=== PATIENT | female | born 1970 | race Caucasian/White ===

== ENCOUNTER 2021-11-14 06:23 | Inpatient (IN) ==
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
[2021-11-14 07:29] LABS: Basophils # (auto) 0.09 K/uL (0-0.2); Basophils % (auto) 0.7 %; Eosinophils # (auto) 0.09 K/uL (0-0.50); Eosinophils % (auto) 0.7 %; Hematocrit (blood only) 41.8 % (34.1-44.9); Immature Granulocytes # (auto) 0.06 K/uL (0.00-0.02); Immature Granulocytes % (auto) 0.5 %; Lymphocytes # (auto) 2.35 K/uL (1.2-3.4); Lymphocytes % (auto) 19.5 %; Mean Corpuscular Hemoglobin 28.7 pg (25.0-34.0); Mean Corpuscular Hgb Conc 33.5 g/dL (32.0-36.0); Mean Corpuscular Volume 85.7 fL (80.0-100.0); Mean Platelet Volume 9.6 fL (9.4-12.3); Monocytes # (auto) 0.56 K/uL (0.24-0.82); Monocytes % (auto) 4.7 %; Neutrophils # (auto) 8.89 K/uL (1.4-6.5); Neutrophils % (auto) 73.9 %; Platelet Count 292 K/uL (130-400); RDW Coefficient of Variation 13.3 % (11.5-14.5); RDW Standard Deviation 41.6 fL (36.4-46.3); Red Blood Count 4.88 M/uL (3.93-5.22); White Blood Count 12.04 K/ul (4.8-10.8)
[2021-11-14] MEDS ORDERED: SODIUM CHLORIDE 0.9% 1000ML 1,000 ML IV SCH ×2 (07:30→11:15)
--- NOTE | 2021-11-14 07:44 | XRay Report ---
XR chest 1V portable HISTORY: 51 years-old Female od acute drug overdose COMPARISON: None TECHNIQUE: Portable AP view of the chest FINDINGS: Cardiac silhouette is mildly enlarged. There is no pneumothorax, pleural effusion, airspace consolida tion or overt pulmonary edema. Bones of the chest appear grossly intact. IMPRESSION: No acute process. ACT 112: Negative or not required by law. The above report was generated using voice recognition software. It may contain grammatical, syntax o r spelling errors. Electronically signed by: Jovanni Vera M.D. 11/14/2021 7:43 AM
[2021-11-14 07:45] LABS: Pregnancy Test, Serum Negative (Negative)
[2021-11-14 07:46] LABS: Acetaminophen < 3 ug/ml (10-30); Salicylate < 3.0 mg/dl (3.0-30)
[2021-11-14 07:47] LABS: Albumin Globulin Ratio 1.5 (0.9-2); Albumin Level 4.4 gm/dl (3.4-5.0); BUN Creatinine Ratio 16.8 (10-20); Bilirubin,Total 0.8 mg/dl (0.2-1.0); Calcium 9.6 mg/dl (8.5-10.1); Creatinine Clr Calc Pharmacy 58.1 ml/min; Est GFR (Non-African American) 44.9 ml/min; Globulin 2.9 gm/dl (2.5-4.0); Potassium 4.5 mmol/L (3.5-5.1); Total Protein 7.3 gm/dl (6.0-8.3)
[2021-11-14 09:22] LABS: Appearance Urine Cloudy (Clear); Bacteria Urine Automated 1+ (Negative); Bilirubin Urine Negative (Negative); Blood Urine Negative (Negative); Color Urine Yellow; Epithelial Cell Urine Auto >30 /lpf (0-5); Glucose Urine UA Negative (Negative); Ketones Urine Trace (Negative); Leukocyte Esterase Urine Negative (Negative); Nitrite Urine Negative (Negative); Protein Urine Negative (Negative); RBC Urine Automated 0-4 /hpf (0-4); Specific Gravity Urine 1.015 (1.000-1.030); Urobilinogen Urine Negative (Negative)
[2021-11-14 09:23] LABS: Cast Urine Automated >30 /lpf (0-5)
[2021-11-14 10:09] LABS: Amphetamines+Metham, Urine Neg (Neg); Barbiturates, Urine Neg (Neg); Benzodiazepine, Urine Pos (Neg); Cocaine, Urine Neg (Neg); MDMA (Ecstacy), Urine Pos (Neg); Methadone, Urine Neg (Neg); Opiate, Urine Neg (Neg); Phencyclidine, Urine Neg (Neg)
--- NOTE | 2021-11-14 10:36 | Electrocardiogram Report ---
Test Reason : Blood Pressure : / mmHG Vent. Rate : 056 BPM Atrial Rate : 056 BPM P-R Int : 176 ms QRS Dur : 082 ms QT Int : 476 ms P-R-T Axes : 052 007 013 degrees QTc Int : 459 ms Sinus bradycardia Otherwise normal ECG No previous ECGs available Confirmed by Mesfin Moran ([id number]) on 11/14/2021 10:35:55 AM Referred By: REFERRED SELF Confirmed By:Mesfin Moran
--- NOTE | 2021-11-14 11:19 | History & Physical Report ---
Date of Service November 14, 2021 Assessment & Plan (1) Suicide attempt by multiple drug overdose: (2) MDD (major depressive disorder), recurrent episode, severe: (3) Anxiety: Plan: - Admit to tele - Will consult psych - Discussed therapy and counseling, pt reports that she has never utilized services like this in the past, agreeable to outpatient counseling/therapy after this hospital stay - 1:1 observation for now - Holding amlodipine and propranolol as she overdosed on these medications at 9 pm on 11/13 - Will keep pacemaker and atropine available at bedside in case of severe bradycardia or hypotension, BP currently stable and improving - Will continue NSS at 150 mg/hr x 2 bags - Seizure precautions - Follow BSG ACHS or Q6H if not tolerating po intake, currently pt is requesting juice and tolerating it well. (4) HTN (hypertension): Plan: - Holding propranolol and amlodipine secondary to above (5) IBS (irritable bowel syndrome): Plan: - Chronic, no current complaints (6) Hypothyroidism: Plan: - Cont levothyroxine, chest tsh and free T4 DVT ppx: Teds, scds, ambulatory CODE: FULL Dispo: From home, remain in the hospital x 1-2 days History of Present Illness Chief Complaint: Overdose Primary Care Provider: NO PCP This is a 51 yo F with PMHx of HTN, IBS, hypothyroidism, major depressive disorder and anxiety who presents to the ER after overdose on propranolol and amlodipine. Patient reports that she has been under many stressors recently, she is a traveling [employer] and recently completed a job assignment in [place]. She is currently employed here in town and reports that she hates her job. She was away from her 3 children, ages 14, 17 and 18. Patient is newly engaged to her fianc, which she has been dating for approximately 1 year. Last night they got into an argument over alcohol use, as she personally does not drink more than an occasional glass of wine, however reports that her fianc will drink more than 2 drinks in a sitting and that this upsets her due to something that occurred in her childhood which she does not want to discuss with me currently. Her one dog recently had to be put to sleep. She also moved to here to [place] from [place] earlier this year and states that it has been stressful to be away from her family and her friends. She previously was running for exercise when she was in [place], but also reports she hasn't had time to do this since coming back. Due to all the social stressors and the argument last night she decided she was tired of this and wanted to kill herself by overdosing on propranolol extended release 80 mg x 21-22 tablets, and amlodipine 2.5 mg x 20 tablets at 9pm last evening. She did not sleep all night due to interruptions with her dogs keeping her awake with barking. Denies any other acute symptoms last evening other than feeling a bit weak this morning when she got up. At this point, she has ambulated to the bathroom without difficulty in the ER. She denies any homicidal ideations. She reports she has never felt this way before and has never previously experienced suicidal ideations. Never has previously seen a psychiatrist, counselor or therapist. Pertinent social history: Patient has been on Prozac 60 mg daily x5 years since when her mother . Currently lives with her abe and her 3 children. Employed as a SITE FOREMAN, traveling assignments. Never incarcerated Family history: Mother: of nonalcoholic cirrhosis and sepsis at age 72 Father: DM type II, at age 55 due to an [facility] Brother: Hypertension Sister: Abdominal issues, vomiting, thrush Allergies Allergy/AdvReac Type Severity Reaction Status Date / Time No Known Allergies Allergy Unverified 11/14/21 17:30 Home Medications Medication Instructions Recorded Confirmed Type amlodipine 2.5 mg PO DAILY 11/14/21 11/14/21 History fluoxetine 20 mg capsule (Prozac) 60 mg PO DAILY 11/14/21 11/14/21 History levothyroxine 50 mcg PO DAILY 11/14/21 11/14/21 History propranolol 80 mg capsule,24 80 mg PO DAILY 11/14/21 11/14/21 History hr,extended release Past Med/Surg History Medical History (Updated 11/14/21 @ 12:20 by Haylee Martines PA-C) Anxiety HTN (hypertension) Hypothyroidism IBS (irritable bowel syndrome) MDD (major depressive disorder), recurrent episode, severe Family History (Updated 11/14/21 @ 12:13 by Haylee Martines PA-C) Father Heart disease Diabetes Brother Hypertension Mother Diabetes Non-alcoholic cirrhosis Social History (Updated 11/14/21 @ 12:13 by RHODA Lora Smoking Status: Never smoker Tobacco Type: Smokeless Tobacco (Dip or Chew) Hx Alcohol Use: No Hx Substance Use: No Preferred Language: Ecuadorean Communication Ability: Effective Maintenance Operator Required: No Beliefs That Will Affect Care: None Current Living Situation: Significant Other Current Living Situation Comment: boyfriend current occupational status: employed Other Information That Helps Us Care for You: No Feels Safe at Home: Yes Safety Concerns: Feels Safe At This Time Assistive Devices: Glasses Review of Systems Review of Systems: Constitutional: No fever, sweats or chills Eyes: No diplopia, no worsening or blurred vision ENT: normal hearing, no trouble swallowing Respiratory: No cough, sputum, dyspnea at rest or on exertion Cardiovascular: No chest pain, tightness or palpitations Abdomen: No pain, nausea, vomiting, diarrhea or constipation Musculoskeletal: No joint pain, calf pain, swelling Neurologic: No weakness, numbness/tingling, or balance problems Psychiatric: + anxiety and depression, as per HPI. Skin: No rash or itch Physical Exam Physical Exam: General: awake, alert, no apparent distress, + shakey Head: Normocephalic, atraumatic ENT: PERRL, EOMI, no pharyngeal exudate, mucous membranes moist Chest: Clear to auscultation, on room air, no adventitious breath sounds Cardiac: Regular rate and rhythm, Hr in mid 50s at beside, BP 90s/70s, no murmur, no JVD, normal peripheral pulses, good capillary refill Abdominal: NABS x 4 quadrants, soft, nondistended, nontender to palpation, no rebound or guarding Extremities: Normal inspection, no peripheral edema or erythema, calfs nontender to palpation Psych: depressed mood and slightly tearful affect at times, denies suicidal and homicidal ideations currently Neuro: AAO x 3, strength intact bilaterally and rated 5/5, no motor deficits, speech is clear, no peripheral sensory deficits Results & Data Results & Data ([facility]) Vital Signs (Past 12 Hours) Vital Signs Temp Pulse Pulse Resp BP BP Pulse Ox 11/14/21 09:45 56 L 16 92 11/14/21 09:45 86/49 L 11/14/21 09:30 59 L 17 91 11/14/21 09:30 94/58 L 11/14/21 09:15 55 L 14 94 11/14/21 09:15 88/56 L 11/14/21 09:00 57 L 18 93 11/14/21 09:00 89/56 L 11/14/21 08:45 54 L 17 93 11/14/21 08:45 91/59 L 11/14/21 08:30 55 L 15 93 11/14/21 08:30 88/57 L 11/14/21 08:15 54 L 23 95 11/14/21 08:15 90/56 L 11/14/21 08:00 54 L 16 94 11/14/21 08:00 82/55 L 11/14/21 07:45 55 L 17 95 11/14/21 07:45 86/50 L 11/14/21 07:31 95/53 L 11/14/21 07:31 56 L 18 94 11/14/21 07:00 54 L 11 L 95 11/14/21 07:00 90/52 L 11/14/21 06:54 90/55 L 11/14/21 06:54 56 L 17 91 11/14/21 06:43 55 L 18 11/14/21 06:43 90/49 L 11/14/21 06:55 53 L 16 90/55 L 94 11/14/21 06:53 89 L 11/14/21 06:29 36.5 C 55 L 18 76/55 L 93 O2 Del Method O2 Flow Rate 11/14/21 09:45 11/14/21 09:45 11/14/21 09:30 11/14/21 09:30 11/14/21 09:15 11/14/21 09:15 11/14/21 09:00 11/14/21 09:00 11/14/21 08:45 11/14/21 08:45 11/14/21 08:30 11/14/21 08:30 11/14/21 08:15 11/14/21 08:15 11/14/21 08:00 11/14/21 08:00 11/14/21 07:45 11/14/21 07:45 11/14/21 07:31 11/14/21 07:31 11/14/21 07:00 11/14/21 07:00 11/14/21 06:54 11/14/21 06:54 11/14/21 06:43 11/14/21 06:43 11/14/21 06:55 Nasal Cannula 2 11/14/21 06:53 Room Air, Nasal Cannula 0 11/14/21 06:29 Room Air Laboratory Results 11/14/21 09:04 Urine Culture - Pending Urine,Clean Catch 11/14/21 11/14/21 11/14/21 10:05 09:04 09:04 WBC RBC Hgb Hct MCV MCH MCHC RDW Std Deviation RDW Coeff of Zeynep Plt Count MPV Immature Gran % (Auto) Neut % (Auto) Lymph % (Auto) [place] % (Auto) Eos % (Auto) Baso % (Auto) Neut # (Auto) Lymph # (Auto) [place] # (Auto) Eos # (Auto) Baso # (Auto) Immature Gran # (Auto) Sodium Potassium Chloride Carbon Dioxide Anion Gap BUN Creatinine Est Cr Clr Drug Dosing Est GFR ( Amer) Est GFR (Non-Af Amer) BUN/Creatinine Ratio Glucose POC Glucose 100 H Lactate Calcium Total Bilirubin AST ALT Alkaline Phosphatase Total Protein Albumin Globulin Albumin/Globulin Ratio HCG, Qual Urine Color Yellow Urine Appearance Cloudy A Urine pH 5.0 Ur Specific [place] 1.015 Urine Protein Negative Urine Glucose (UA) Negative Urine Ketones Trace H Urine Blood Negative Urine Nitrite Negative Urine Bilirubin Negative Urine Urobilinogen Negative Ur Leukocyte Esterase Negative Urine WBC (Auto) 5-10 H Urine RBC (Auto) 0-4 U Hyaline Cast (Auto) >30 H U Epithel Cells (Auto) >30 H Urine Bacteria (Auto) 1+ H Ur Renal Epithelial Cell 5-10 H Salicylates Urine Opiates Screen Neg Ur Methadone, Qual Neg Acetaminophen Urine Barbiturates Neg Ur Phencyclidine (PCP) Neg U Amphetamin/Meth Scrn Neg MDMA (Ecstasy) Screen Pos H U Benzodiazepines Scrn Pos H Ur Cocaine Metabolite Neg U Marijuana (THC) Screen Neg Ethyl Alcohol mg/dL 11/14/21 11/14/21 11/14/21 07:55 06:49 06:49 WBC RBC Hgb Hct MCV MCH MCHC RDW Std Deviation RDW Coeff of Zeynep Plt Count MPV Immature Gran % (Auto) Neut % (Auto) Lymph % (Auto) [place] % (Auto) Eos % (Auto) Baso % (Auto) Neut # (Auto) Lymph # (Auto) [place] # (Auto) Eos # (Auto) Baso # (Auto) Immature Gran # (Auto) Sodium Potassium Chloride Carbon Dioxide Anion Gap BUN Creatinine Est Cr Clr Drug Dosing Est GFR ( Amer) Est GFR (Non-Af Amer) BUN/Creatinine Ratio Glucose POC Glucose Lactate 1.8 Calcium Total Bilirubin AST ALT Alkaline Phosphatase Total Protein Albumin Globulin Albumin/Globulin Ratio HCG, Qual Negative Urine Color Urine Appearance Urine pH Ur Specific [place] Urine Protein Urine Glucose (UA) Urine Ketones Urine Blood Urine Nitrite Urine Bilirubin Urine Urobilinogen Ur Leukocyte Esterase Urine WBC (Auto) Urine RBC (Auto) U Hyaline Cast (Auto) U Epithel Cells (Auto) Urine Bacteria (Auto) Ur Renal Epithelial Cell Salicylates Urine Opiates Screen Ur Methadone, Qual Acetaminophen Urine Barbiturates Ur Phencyclidine (PCP) U Amphetamin/Meth Scrn MDMA (Ecstasy) Screen U Benzodiazepines Scrn Ur Cocaine Metabolite U Marijuana (THC) Screen Ethyl Alcohol mg/dL < 10.0 11/14/21 11/14/21 11/14/21 06:49 06:49 06:49 WBC 12.04 H RBC 4.88 Hgb 14.0 Hct 41.8 MCV 85.7 MCH 28.7 MCHC 33.5 RDW Std Deviation 41.6 RDW Coeff of Zeynep 13.3 Plt Count 292 MPV 9.6 Immature Gran % (Auto) 0.5 Neut % (Auto) 73.9 Lymph % (Auto) 19.5 [place] % (Auto) 4.7 Eos % (Auto) 0.7 Baso % (Auto) 0.7 Neut # (Auto) 8.89 H Lymph # (Auto) 2.35 [place] # (Auto) 0.56 Eos # (Auto) 0.09 Baso # (Auto) 0.09 Immature Gran # (Auto) 0.06 H Sodium 135 L Potassium 4.5 Chloride 101 Carbon Dioxide 23 Anion Gap 11 BUN 23 Creatinine 1.37 H Est Cr Clr Drug Dosing 58.1 Est GFR ( Amer) 52.0 Est GFR (Non-Af Amer) 44.9 BUN/Creatinine Ratio 16.8 Glucose 137 H POC Glucose Lactate Calcium 9.6 Total Bilirubin 0.8 AST 19 ALT 23 Alkaline Phosphatase 48 Total Protein 7.3 Albumin 4.4 Globulin 2.9 Albumin/Globulin Ratio 1.5 HCG, Qual Urine Color Urine Appearance Urine pH Ur Specific [place] Urine Protein Urine Glucose (UA) Urine Ketones Urine Blood Urine Nitrite Urine Bilirubin Urine Urobilinogen Ur Leukocyte Esterase Urine WBC (Auto) Urine RBC (Auto) U Hyaline Cast (Auto) U Epithel Cells (Auto) Urine Bacteria (Auto) Ur Renal Epithelial Cell Salicylates < 3.0 L Urine Opiates Screen Ur Methadone, Qual Acetaminophen < 3 L Urine Barbiturates Ur Phencyclidine (PCP) U Amphetamin/Meth Scrn MDMA (Ecstasy) Screen U Benzodiazepines Scrn Ur Cocaine Metabolite U Marijuana (THC) Screen Ethyl Alcohol mg/dL Diagnostic Findings Chest X-Ray 11/14/21 07:17 XR chest 1V portable HISTORY: 51 years-old Female od acute drug overdose COMPARISON: None TECHNIQUE: Portable AP view of the chest FINDINGS: Cardiac silhouette is mildly enlarged. There is no pneumothorax, pleural effusion, airspace consolidation or overt pulmonary edema. Bones of the chest appear grossly intact. IMPRESSION: No acute process. ACT 112: Negative or not required by law. The above report was generated using voice recognition software. It may contain grammatical, syntax or spelling errors. Electronically signed by: Jovanni Vera M.D. 11/14/2021 7:43 AM ECG Additional Comments: Test Reason : Blood Pressure : / mmHG Vent. Rate : 056 BPM Atrial Rate : 056 BPM P-R Int : 176 ms QRS Dur : 082 ms QT Int : 476 ms P-R-T Axes : 052 007 013 degrees QTc Int : 459 ms Sinus bradycardia Otherwise normal ECG No previous ECGs available Confirmed by Mesfin Moran ([id number]) on 11/14/2021 10:35:55 AM Code Status & VTE Plan Code Status Full code Supervising Physician Co-Signing Physician Notes Attending Addendum: care coordinated with [] please refer to her notes for full details, I agree with her notes patient seen and examined, records reviewed by myself as well on exam, patient [] no other symptoms VS noted and reviewed oriented , not in distress, speaks in sentences with no effort nor accessory muscle use normal rate, regular rhythm, no murmurs clear breath sounds bilaterally non distended, soft, nontender no bipedal edema, erythema, warmth no neuro deficits WBC Hg Crea ASSESSMENT AND PLAN other diagnoses and plan of care as per [] Tyson Toribio MD
[2021-11-14] MEDS ORDERED: CARBOHYDRATES FOR HYPOGLYCEMIA PO PRN ×2 (15:59)
[2021-11-14] MEDS ORDERED: GLUCOSE 40% GEL 15 GM TUBE PO PRN ×2 (15:59)
[2021-11-14] MEDS ORDERED: GLUCAGON FOR INJ 1 MG VIAL SQ PRN ×2 (15:59)
[2021-11-14] MEDS ORDERED: GLUCOSE 10 TAB/TUBE PO PRN ×2 (15:59)
[2021-11-14] MEDS ORDERED: ATROPINE SULFATE 0.1 MG/ML 10ML SYR IV PRN (15:59)
[2021-11-14] MEDS ORDERED: DEXTROSE 50% 50 ML SYRINGE IV PRN ×2 (15:59)
[2021-11-14] MEDS ORDERED: ACETAMINOPHEN 325 MG TAB PO PRN (15:59)
[2021-11-14] MEDS ORDERED: ONDANSETRON INJ 2 MG/ML 2 ML VIAL IV PRN (15:59)
[2021-11-14] MEDS: SODIUM CHLORIDE 0.9% 1000ML 1,000 ML IV SCH ×2 (17:33→23:49)
[2021-11-14] MEDS: Patient's ALLERGY Info needs ENTERED SCH ×6 (17:38→20:21)
[2021-11-15] MEDS: LEVOTHYROXINE SODIUM 50 MCG TABLET PO SCH (07:24)
[2021-11-15 07:34] LABS: Hematocrit (blood only) 37.1 % (34.1-44.9); Hemoglobin 12.2 g/dl (12.0-16.0); Mean Corpuscular Hemoglobin 28.5 pg (25.0-34.0); Mean Corpuscular Hgb Conc 32.9 g/dL (32.0-36.0); Mean Corpuscular Volume 86.7 fL (80.0-100.0); Mean Platelet Volume 9.5 fL (9.4-12.3); Platelet Count 235 K/uL (130-400); RDW Coefficient of Variation 13.6 % (11.5-14.5); RDW Standard Deviation 42.8 fL (36.4-46.3); Red Blood Count 4.28 M/uL (3.93-5.22); White Blood Count 10.85 K/ul (4.8-10.8)
[2021-11-15 08:10] LABS: Estimated Average Glucose 117 mg/dl; Hemoglobin A1C 5.7 % (4.5-5.6)
[2021-11-15 08:36] LABS: Albumin Globulin Ratio 1.5 (0.9-2); BUN Creatinine Ratio 15.7 (10-20); Bilirubin Direct 0.1 mg/dl (0-0.2); Calcium 8.4 mg/dl (8.5-10.1); Creatinine Clr Calc Pharmacy 89.4 ml/min; Est GFR (African American) 87.6 ml/min; Est GFR (Non-African American) 75.6 ml/min; Globulin 2.6 gm/dl (2.5-4.0); Magnesium 1.8 mg/dl (1.7-2.4); Potassium 3.7 mmol/L (3.5-5.1); Total Protein 6.6 gm/dl (6.0-8.3)
--- NOTE | 2021-11-15 09:57 | Psychiatric Consultation ---
Date of Consultation November 15, 2021 Impression / Recommendations Impression 51 yo female with no formal psych hx, taking Prozac 60 for several years for PMDD. Currently having adjustment issues that impulsively triggered OD attempt. (1) Anxiety: (2) Hypothyroidism: (3) Suicide attempt by multiple drug overdose: (4) Adjustment disorder with depressed mood: Plan reviewed that recommendation is for inpatient psychiatric hospitalization for a few days after medical clearance, particularly as not established with local providers and it is the weekend so no appropriate aftercare could be arranged if cleared today or tomorrow. She is rather resistant to this idea. Zachery feels forced hospitalization on an involuntary basis would be counter-therapeutic as daughter is coming to area for a few days, etc. Patient is not able to leave AMA until a more formal aftercare and safety plan in place. Please notify service as currently no [address] Should remain on as per hospital policy s/p OD as final disposition is still pending. Psych History Identifying Data Veronica is a 51 yo female from who recently moved in with her fiance in [place]. She was admitted [facility] on 11/14/21 s/p suicide attempt. Chief Complaint "This was impulsive, I'm like a different person when I get my period". History of Present Illness Veronica states that [place] this area [place] more [place] has been an adjustment. She and her fiance argued and she impulsively took approximately 25 propranolol 80 mg ER and 25 amlodipine 2.5. She was admitted for cardiac monitoring for bradycardia and hypotension. 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 Her 19 yo son is getting ready to join the [employer]. Her 20 yo daughter is in college. She misunderstood during the argument that her fiance wanted her to move out and didn't want to burden her 26 yo daughter. She has a history of taking Prozac 60 mg for >5 years for some anxiety/depression after of mother and also because her moods are extremely labile around her menses. She reports feeling the medication works well and that she was compliant leading up to this. She completed a PHQ-9 which was 5 (1 on question 9 for feeling like would be better off several days in the past 2 weeks). She has no prior history of psychiatric inpatient admission or self-harm. Collateral history from her boyfriend confirms her report but adds the argument was about her bringing home a puppy which he wanted to rehome as they have 5 d ogs. He had no concerns about her safety or their relationship being volatile should she return home. He will remove rifle and could lock meds. Allergies Allergy/AdvReac Type Severity Reaction Status Date / Time No Known Allergies Allergy Unverified 11/14/21 17:30 Home Medications Medication Instructions Recorded Confirmed Type amlodipine 2.5 mg PO DAILY 11/14/21 11/14/21 History fluoxetine 20 mg capsule (Prozac) 60 mg PO DAILY 11/14/21 11/14/21 History levothyroxine 50 mcg PO DAILY 11/14/21 11/14/21 History propranolol 80 mg capsule,24 80 mg PO DAILY 11/14/21 11/14/21 History hr,extended release Personal History Beliefs That Will Affect Care: None Patient History Medical History Anxiety HTN (hypertension) Hypothyroidism IBS (irritable bowel syndrome) MDD (major depressive disorder), recurrent episode, severe Family History Father Heart disease Diabetes Brother Hypertension Mother Diabetes Non-alcoholic cirrhosis Social History Smoking Status: Never smoker Tobacco Type: Smokeless Tobacco (Dip or Chew) Hx Alcohol Use: No Hx Substance Use: No Preferred Language: Persian Communication Ability: Effective Construction Supervisor Required: No Beliefs That Will Affect Care: None Current Living Situation: Significant Other Current Living Situation Comment: boyfriend current occupational status: employed Other Information That Helps Us Care for You: No Feels Safe at Home: Yes Safety Concerns: Feels Safe At This Time Assistive Devices: Glasses Physical Exam Psychiatric: Orientation: alert and oriented x 3 Apperance: appropriately dressed and appropriately groomed Eye Contact: good eye contact Motor Behavior: no abnormal motor movements Speech: normal rate/rhythm/volume of speech Affect: euthymic affect Mood: + anxious mood Thought Process: goal directed thought process Thought Content: reality based without delusions Suicidal Thoughts: denies suicidal thoughts Homicidal Thoughts: denies homicidal thoughts Hallucinations: no auditory hallucinations and no visual hallucinations Cognition: attention grossly intact and language grossly intact Estimated Intelligence: consistent with education level Insight: + fair insight Vital Signs (Past 24 Hours): Last Vital Signs Temp 36.9 C 11/15/21 07:09 Pulse 65 11/15/21 07:09 Resp 18 11/15/21 07:09 BP 97/71 L 11/15/21 07:09 Pulse Ox 96 11/15/21 07:09 O2 Del Method 11/15/21 07:09 O2 Flow Rate 2 11/14/21 16:23 Review of Systems All systems reviewed & are unremarkable except as noted in HPI & below Results & Data ([facility]) Laboratory Results 11/15/21 11/15/21 11/15/21 Range/Units 06:51 06:51 06:51 WBC 10.85 H (4.8-10.8) K/ul RBC 4.28 (3.93-5.22) M/uL Hgb 12.2 (12.0-16.0) g/dl Hct 37.1 (34.1-44.9) % MCV 86.7 (80.0-100.0) fL MCH 28.5 (25.0-34.0) pg MCHC 32.9 (32.0-36.0) g/dL RDW Std Deviation 42.8 (36.4-46.3) fL RDW Coeff of Zeynep 13.6 (11.5-14.5) % Plt Count 235 (130-400) K/uL MPV 9.5 (9.4-12.3) fL Sodium 136 (136-145) mmol/L Potassium 3.7 (3.5-5.1) mmol/L Chloride 104 (98-107) mmol/L Carbon Dioxide 25 (21-32) mmol/L Anion Gap 7 (3-11) BUN 14 (6-23) mg/dl Creatinine 0.89 D (0.6-1.2) mg/dl Est Cr Clr Drug Dosing 89.4 ml/min Est GFR ( Amer) 87.6 ml/min Est GFR (Non-Af Amer) 75.6 ml/min BUN/Creatinine Ratio 15.7 (10-20) Glucose 95 (70-99(Fasting)) mg/dl POC Glucose (70-99) mg/dl Estimat Average Glucose 117 mg/dl Hemoglobin A1c 5.7 H (4.5-5.6) % Calcium 8.4 L (8.5-10.1) mg/dl Phosphorus 3.0 (2.5-4.9) mg/dl Magnesium 1.8 (1.7-2.4) mg/dl Total Bilirubin 1.0 (0.2-1.0) mg/dl Direct Bilirubin 0.1 (0-0.2) mg/dl AST 18 (13-39) U/L ALT 19 (7-52) U/L Alkaline Phosphatase 41 (34-104) U/L Total Protein 6.6 (6.0-8.3) gm/dl Albumin 4.0 (3.4-5.0) gm/dl Globulin 2.6 (2.5-4.0) gm/dl Albumin/Globulin Ratio 1.5 (0.9-2) TSH (0.300-4.500) uIu/ml Urine WBC (Auto) (0-5) /hpf Urine RBC (Auto) (0-4) /hpf U Hyaline Cast (Auto) (0-5) /lpf U Epithel Cells (Auto) (0-5) /lpf Urine Bacteria (Auto) (Negative) Ur Renal Epithelial Cell (0-5) /lpf Urine Opiates Screen (Neg) Ur Methadone, Qual (Neg) Urine Barbiturates (Neg) Ur Phencyclidine (PCP) (Neg) U Amphetamin/Meth Scrn (Neg) Urine MDEA MDMA (Ecstasy) Screen (Neg) MDMA Urine MDMA U OH-Alprazolam Confrm U Benzodiazepines Scrn (Neg) 7-Amino Clonazepam Ur Nordiazepam Confirm U OH-ethylflurazepam U Lorazepam Cnf GC/MS U Oxazepam Confm GC/MS Ur Temazepam Confirm U OH-Triazolam Confirm U OH-Midazolam Confirm Ur Cocaine Metabolite (Neg) U Marijuana (THC) Screen (Neg) Drug Screen Comment SARS-CoV-2, RNA, NAAT (NEGATIVE) 11/14/21 11/14/21 11/14/21 Range/Units 17:37 13:20 12:56 WBC (4.8-10.8) K/ul RBC (3.93-5.22) M/uL Hgb (12.0-16.0) g/dl Hct (34.1-44.9) % MCV (80.0-100.0) fL MCH (25.0-34.0) pg MCHC (32.0-36.0) g/dL RDW Std Deviation (36.4-46.3) fL RDW Coeff of Zeynep (11.5-14.5) % Plt Count (130-400) K/uL MPV (9.4-12.3) fL Sodium (136-145) mmol/L Potassium (3.5-5.1) mmol/L Chloride (98-107) mmol/L Carbon Dioxide (21-32) mmol/L Anion Gap (3-11) BUN (6-23) mg/dl Creatinine (0.6-1.2) mg/dl Est Cr Clr Drug Dosing ml/min Est GFR ( Amer) ml/min Est GFR (Non-Af Amer) ml/min BUN/Creatinine Ratio (10-20) Glucose (70-99(Fasting)) mg/dl POC Glucose 176 H 126 H (70-99) mg/dl Estimat Average Glucose mg/dl Hemoglobin A1c (4.5-5.6) % Calcium (8.5-10.1) mg/dl Phosphorus (2.5-4.9) mg/dl Magnesium (1.7-2.4) mg/dl Total Bilirubin (0.2-1.0) mg/dl Direct Bilirubin (0-0.2) mg/dl AST (13-39) U/L ALT (7-52) U/L Alkaline Phosphatase (34-104) U/L Total Protein (6.0-8.3) gm/dl Albumin (3.4-5.0) gm/dl Globulin (2.5-4.0) gm/dl Albumin/Globulin Ratio (0.9-2) TSH 0.902 (0.300-4.500) uIu/ml Urine WBC (Auto) (0-5) /hpf Urine RBC (Auto) (0-4) /hpf U Hyaline Cast (Auto) (0-5) /lpf U Epithel Cells (Auto) (0-5) /lpf Urine Bacteria (Auto) (Negative) Ur Renal Epithelial Cell (0-5) /lpf Urine Opiates Screen (Neg) Ur Methadone, Qual (Neg) Urine Barbiturates (Neg) Ur Phencyclidine (PCP) (Neg) U Amphetamin/Meth Scrn (Neg) Urine MDEA MDMA (Ecstasy) Screen (Neg) MDMA Urine MDMA U OH-Alprazolam Confrm U Benzodiazepines Scrn (Neg) 7-Amino Clonazepam Ur Nordiazepam Confirm U OH-ethylflurazepam U Lorazepam Cnf GC/MS U Oxazepam Confm GC/MS Ur Temazepam Confirm U OH-Triazolam Confirm U OH-Midazolam Confirm Ur Cocaine Metabolite (Neg) U Marijuana (THC) Screen (Neg) Drug Screen Comment SARS-CoV-2, RNA, NAAT (NEGATIVE) 11/14/21 11/14/21 11/14/21 Range/Units 12:34 10:05 09:04 WBC (4.8-10.8) K/ul RBC (3.93-5.22) M/uL Hgb (12.0-16.0) g/dl Hct (34.1-44.9) % MCV (80.0-100.0) fL MCH (25.0-34.0) pg MCHC (32.0-36.0) g/dL RDW Std Deviation (36.4-46.3) fL RDW Coeff of Zeynep (11.5-14.5) % Plt Count (130-400) K/uL MPV (9.4-12.3) fL Sodium (136-145) mmol/L Potassium (3.5-5.1) mmol/L Chloride (98-107) mmol/L Carbon Dioxide (21-32) mmol/L Anion Gap (3-11) BUN (6-23) mg/dl Creatinine (0.6-1.2) mg/dl Est Cr Clr Drug Dosing ml/min Est GFR ( Amer) ml/min Est GFR (Non-Af Amer) ml/min BUN/Creatinine Ratio (10-20) Glucose (70-99(Fasting)) mg/dl POC Glucose 100 H (70-99) mg/dl Estimat Average Glucose mg/dl Hemoglobin A1c (4.5-5.6) % Calcium (8.5-10.1) mg/dl Phosphorus (2.5-4.9) mg/dl Magnesium (1.7-2.4) mg/dl Total Bilirubin (0.2-1.0) mg/dl Direct Bilirubin (0-0.2) mg/dl AST (13-39) U/L ALT (7-52) U/L Alkaline Phosphatase (34-104) U/L Total Protein (6.0-8.3) gm/dl Albumin (3.4-5.0) gm/dl Globulin (2.5-4.0) gm/dl Albumin/Globulin Ratio (0.9-2) TSH (0.300-4.500) uIu/ml Urine WBC (Auto) (0-5) /hpf Urine RBC (Auto) (0-4) /hpf U Hyaline Cast (Auto) (0-5) /lpf U Epithel Cells (Auto) (0-5) /lpf Urine Bacteria (Auto) (Negative) Ur Renal Epithelial Cell (0-5) /lpf Urine Opiates Screen (Neg) Ur Methadone, Qual (Neg) Urine Barbiturates (Neg) Ur Phencyclidine (PCP) (Neg) U Amphetamin/Meth Scrn (Neg) Urine MDEA Pending MDMA (Ecstasy) Screen (Neg) MDMA Pending Urine MDMA Pending U OH-Alprazolam Confrm Pending U Benzodiazepines Scrn (Neg) 7-Amino Clonazepam Pending Ur Nordiazepam Confirm Pending U OH-ethylflurazepam Pending U Lorazepam Cnf GC/MS Pending U Oxazepam Confm GC/MS Pending Ur Temazepam Confirm Pending U OH-Triazolam Confirm Pending U OH-Midazolam Confirm Pending Ur Cocaine Metabolite (Neg) U Marijuana (THC) Screen (Neg) Drug Screen Comment Pending SARS-CoV-2, RNA, NAAT NEGATIVE (NEGATIVE) 11/14/21 11/14/21 Range/Units 09:04 09:04 WBC (4.8-10.8) K/ul RBC (3.93-5.22) M/uL Hgb (12.0-16.0) g/dl Hct (34.1-44.9) % MCV (80.0-100.0) fL MCH (25.0-34.0) pg MCHC (32.0-36.0) g/dL RDW Std Deviation (36.4-46.3) fL RDW Coeff of Zeynep (11.5-14.5) % Plt Count (130-400) K/uL MPV (9.4-12.3) fL Sodium (136-145) mmol/L Potassium (3.5-5.1) mmol/L Chloride (98-107) mmol/L Carbon Dioxide (21-32) mmol/L Anion Gap (3-11) BUN (6-23) mg/dl Creatinine (0.6-1.2) mg/dl Est Cr Clr Drug Dosing ml/min Est GFR ( Amer) ml/min Est GFR (Non-Af Amer) ml/min BUN/Creatinine Ratio (10-20) Glucose (70-99(Fasting)) mg/dl POC Glucose (70-99) mg/dl Estimat Average Glucose mg/dl Hemoglobin A1c (4.5-5.6) % Calcium (8.5-10.1) mg/dl Phosphorus (2.5-4.9) mg/dl Magnesium (1.7-2.4) mg/dl Total Bilirubin (0.2-1.0) mg/dl Direct Bilirubin (0-0.2) mg/dl AST (13-39) U/L ALT (7-52) U/L Alkaline Phosphatase (34-104) U/L Total Protein (6.0-8.3) gm/dl Albumin (3.4-5.0) gm/dl Globulin (2.5-4.0) gm/dl Albumin/Globulin Ratio (0.9-2) TSH (0.300-4.500) uIu/ml Urine WBC (Auto) 5-10 H (0-5) /hpf Urine RBC (Auto) 0-4 (0-4) /hpf U Hyaline Cast (Auto) >30 H (0-5) /lpf U Epithel Cells (Auto) >30 H (0-5) /lpf Urine Bacteria (Auto) 1+ H (Negative) Ur Renal Epithelial Cell 5-10 H (0-5) /lpf Urine Opiates Screen Neg (Neg) Ur Methadone, Qual Neg (Neg) Urine Barbiturates Neg (Neg) Ur Phencyclidine (PCP) Neg (Neg) U Amphetamin/Meth Scrn Neg (Neg) Urine MDEA MDMA (Ecstasy) Screen Pos H (Neg) MDMA Urine MDMA U OH-Alprazolam Confrm U Benzodiazepines Scrn Pos H (Neg) 7-Amino Clonazepam Ur Nordiazepam Confirm U OH-ethylflurazepam U Lorazepam Cnf GC/MS U Oxazepam Confm GC/MS Ur Temazepam Confirm U OH-Triazolam Confirm U OH-Midazolam Confirm Ur Cocaine Metabolite Neg (Neg) U Marijuana (THC) Screen Neg (Neg) Drug Screen Comment SARS-CoV-2, RNA, NAAT (NEGATIVE) Diagnostic Findings qtc 459 Medications Administered Levothyroxine Sodium (Levothyroxine Sodium 50 Mcg Tablet) 50 mcg PO DAILYBB JASPER Stop: 12/15/21 06:29 Last Admin: 11/15/21 07:24 Dose: 50 mcg Documented By: HOLLY Coding Level of Care Code 42375 [facility] Intl Hosp Care Lvl 2 Diagnoses Anxiety F41.9 Hypothyroidism E03.9 Suicide attempt by multiple drug overdose T50.912A Adjustment disorder with depressed mood F43.21
--- NOTE | 2021-11-15 10:37 | Hospitalist Progress Note ---
Date of Service November 15, 2021 Assessment & Plan (1) Suicide attempt by multiple drug overdose: (2) MDD (major depressive disorder), recurrent episode, severe: (3) Anxiety: Plan: - Admitted to tele - Discussed therapy and counseling, pt reports that she has never utilized services like this in the past, agreeable to outpatient counseling/therapy after this hospital stay - 1:1 observation for now -Psychiatry consulted, patient cannot leave AMA. Ideally, after being medically cleared, patient would be inpatient psych. Patient at this time is not inclined to that. Also , patient does not have psychiatry/follow-up arranged. - Holding amlodipine and propranolol as she overdosed on these medications at 9 pm on 11/13 - Will keep pacemaker and atropine available at bedside in case of severe bradycardia or hypotension, BP currently stable and improving - received NSS at 150 mg/hr x 2 bags - Seizure precautions (4) HTN (hypertension): Plan: - Holding propranolol and amlodipine secondary to above (5) IBS (irritable bowel syndrome): Plan: - Chronic, no current complaints (6) Hypothyroidism: Plan: - Cont levothyroxine, TSH wnl DVT ppx: Teds, scds, ambulatory CODE: FULL Dispo: tele, pt is from home, ? 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 Patient currently does not have any psychiatrist/follow-up arranged. Patient had argument with her fianc yesterday prior to taking excessive amount of medication. Currently laying in bed, in no acute distress. Denies any chest pain, shortness of breath, any dizziness lightheadedness. Denies abdominal pain, nausea vomiting. Reports she has been ambulating, without any issues. Discussed with Dr. Crawford/psychiatry, will continue to observe the patient today, will likely medically clear tomorrow if no new issues. Will need psychiatry involvement. Review of Systems Review of Systems: All systems reviewed & are unremarkable except as noted in Subjective Physical Exam Physical Exam: General: WD/WN F awake, alert, no apparent distress Head: Normocephalic, atraumatic ENT: PERRL, EOMI, no pharyngeal exudate, mucous membranes moist Chest: Clear to auscultation, on room air, no adventitious breath sounds Cardiac: Regular rate and rhythm, HR in 60s at beside, no murmur, no JVD, normal peripheral pulses Abdominal: NABS x 4 quadrants, soft, nondistended, nontender to palpation Extremities: Normal inspection, no peripheral edema or erythema, calves nontender to palpation Psych: depressed mood Neuro: AAO x 3, strength intact bilaterally and rated 5/5, no motor deficits, speech is clear, no peripheral sensory deficits Results & Data Results & Data ([facility]) Vital Signs (Past 12 Hours) Vital Signs Temp Pulse Pulse Resp BP Pulse Ox O2 Del Method 11/15/21 07:00 65 11/15/21 07:09 36.9 C 65 18 97/71 L 96 Room Air 11/15/21 05:15 36.6 C 70 16 115/67 94 Room Air 11/14/21 23:08 36.9 C 69 18 94/57 L 97 Room Air Laboratory Results 11/15/21 11/15/21 11/15/21 Range/Units 06:51 06:51 06:51 WBC 10.85 H (4.8-10.8) K/ul RBC 4.28 (3.93-5.22) M/uL Hgb 12.2 (12.0-16.0) g/dl Hct 37.1 (34.1-44.9) % MCV 86.7 (80.0-100.0) fL MCH 28.5 (25.0-34.0) pg MCHC 32.9 (32.0-36.0) g/dL RDW Std Deviation 42.8 (36.4-46.3) fL RDW Coeff of Zeynep 13.6 (11.5-14.5) % Plt Count 235 (130-400) K/uL MPV 9.5 (9.4-12.3) fL Sodium 136 (136-145) mmol/L Potassium 3.7 (3.5-5.1) mmol/L Chloride 104 (98-107) mmol/L Carbon Dioxide 25 (21-32) mmol/L Anion Gap 7 (3-11) BUN 14 (6-23) mg/dl Creatinine 0.89 D (0.6-1.2) mg/dl Est Cr Clr Drug Dosing 89.4 ml/min Est GFR ( Amer) 87.6 ml/min Est GFR (Non-Af Amer) 75.6 ml/min BUN/Creatinine Ratio 15.7 (10-20) Glucose 95 (70-99(Fasting)) mg/dl POC Glucose (70-99) mg/dl Estimat Average Glucose 117 mg/dl Hemoglobin A1c 5.7 H (4.5-5.6) % Calcium 8.4 L (8.5-10.1) mg/dl Phosphorus 3.0 (2.5-4.9) mg/dl Magnesium 1.8 (1.7-2.4) mg/dl Total Bilirubin 1.0 (0.2-1.0) mg/dl Direct Bilirubin 0.1 (0-0.2) mg/dl AST 18 (13-39) U/L ALT 19 (7-52) U/L Alkaline Phosphatase 41 (34-104) U/L Total Protein 6.6 (6.0-8.3) gm/dl Albumin 4.0 (3.4-5.0) gm/dl Globulin 2.6 (2.5-4.0) gm/dl Albumin/Globulin Ratio 1.5 (0.9-2) TSH (0.300-4.500) uIu/ml SARS-CoV-2, RNA, NAAT (NEGATIVE) 11/14/21 11/14/21 11/14/21 Range/Units 17:37 13:20 12:56 WBC (4.8-10.8) K/ul RBC (3.93-5.22) M/uL Hgb (12.0-16.0) g/dl Hct (34.1-44.9) % MCV (80.0-100.0) fL MCH (25.0-34.0) pg MCHC (32.0-36.0) g/dL RDW Std Deviation (36.4-46.3) fL RDW Coeff of Zeynep (11.5-14.5) % Plt Count (130-400) K/uL MPV (9.4-12.3) fL Sodium (136-145) mmol/L Potassium (3.5-5.1) mmol/L Chloride (98-107) mmol/L Carbon Dioxide (21-32) mmol/L Anion Gap (3-11) BUN (6-23) mg/dl Creatinine (0.6-1.2) mg/dl Est Cr Clr Drug Dosing ml/min Est GFR ( Amer) ml/min Est GFR (Non-Af Amer) ml/min BUN/Creatinine Ratio (10-20) Glucose (70-99(Fasting)) mg/dl POC Glucose 176 H 126 H (70-99) mg/dl Estimat Average Glucose mg/dl Hemoglobin A1c (4.5-5.6) % Calcium (8.5-10.1) mg/dl Phosphorus (2.5-4.9) mg/dl Magnesium (1.7-2.4) mg/dl Total Bilirubin (0.2-1.0) mg/dl Direct Bilirubin (0-0.2) mg/dl AST (13-39) U/L ALT (7-52) U/L Alkaline Phosphatase (34-104) U/L Total Protein (6.0-8.3) gm/dl Albumin (3.4-5.0) gm/dl Globulin (2.5-4.0) gm/dl Albumin/Globulin Ratio (0.9-2) TSH 0.902 (0.300-4.500) uIu/ml SARS-CoV-2, RNA, NAAT (NEGATIVE) 11/14/21 Range/Units 12:34 WBC (4.8-10.8) K/ul RBC (3.93-5.22) M/uL Hgb (12.0-16.0) g/dl Hct (34.1-44.9) % MCV (80.0-100.0) fL MCH (25.0-34.0) pg MCHC (32.0-36.0) g/dL RDW Std Deviation (36.4-46.3) fL RDW Coeff of Zeynep (11.5-14.5) % Plt Count (130-400) K/uL MPV (9.4-12.3) fL Sodium (136-145) mmol/L Potassium (3.5-5.1) mmol/L Chloride (98-107) mmol/L Carbon Dioxide (21-32) mmol/L Anion Gap (3-11) BUN (6-23) mg/dl Creatinine (0.6-1.2) mg/dl Est Cr Clr Drug Dosing ml/min Est GFR ( Amer) ml/min Est GFR (Non-Af Amer) ml/min BUN/Creatinine Ratio (10-20) Glucose (70-99(Fasting)) mg/dl POC Glucose (70-99) mg/dl Estimat Average Glucose mg/dl Hemoglobin A1c (4.5-5.6) % Calcium (8.5-10.1) mg/dl Phosphorus (2.5-4.9) mg/dl Magnesium (1.7-2.4) mg/dl Total Bilirubin (0.2-1.0) mg/dl Direct Bilirubin (0-0.2) mg/dl AST (13-39) U/L ALT (7-52) U/L Alkaline Phosphatase (34-104) U/L Total Protein (6.0-8.3) gm/dl Albumin (3.4-5.0) gm/dl Globulin (2.5-4.0) gm/dl Albumin/Globulin Ratio (0.9-2) TSH (0.300-4.500) uIu/ml SARS-CoV-2, RNA, NAAT NEGATIVE (NEGATIVE) Medications Administered Current Inpatient Medications Acetaminophen (Acetaminophen 325 Mg Tab) 650 mg PO Q4H PRN PRN Reason: Moderate Pain Stop: 12/14/21 15:58 Atropine Sulfate (Atropine Sulfate 0.1 Mg/Ml 10ml Syr) 0.5 mg IV Q4H PRN PRN Reason: bradycardia Stop: 12/14/21 15:58 Dextrose (Dextrose 50% 50 Ml Syringe) 25 - 50 ml IV UD PRN; Protocol PRN Reason: Hypoglycemia Protocol Stop: 12/14/21 15:58 Glucagon (Glucagon For Inj 1 Mg Vial) 1 mg SQ UD PRN; Protocol PRN Reason: Hypoglycemia Protocol Stop: 12/14/21 15:58 Glucose (Glucose 40% Gel 15 Gm Tube) 15 - 30 gm PO UD PRN; Protocol PRN Reason: Hypoglycemia Protocol Stop: 12/14/21 15:58 Glucose (Glucose 10 Tab/Tube) 4 - 8 tab PO UD PRN; Protocol PRN Reason: Hypoglycemia Treatment Stop: 12/14/21 15:58 Levothyroxine Sodium (Levothyroxine Sodium 50 Mcg Tablet) 50 mcg PO DAILYBB JASPER Stop: 12/15/21 06:29 Last Admin: 11/15/21 07:24 Dose: 50 mcg Miscellaneous (Carbohydrates For Hypoglycemia ) 15 - 30 gm PO UD PRN PRN Reason: Hypoglycemia Protocol Stop: 12/14/21 15:58 Ondansetron HCl (Ondansetron Inj 2 Mg/Ml 2 Ml Vial) 4 mg IV Q4H PRN PRN Reason: Nausea And Vomiting Stop: 12/14/21 15:58
[2021-11-16] MEDS: LEVOTHYROXINE SODIUM 50 MCG TABLET PO SCH (07:24)
--- NOTE | 2021-11-16 07:34 | Electrocardiogram Report ---
Test Reason : Blood Pressure : / mmHG Vent. Rate : 059 BPM Atrial Rate : 059 BPM P-R Int : 134 ms QRS Dur : 084 ms QT Int : 458 ms P-R-T Axes : 057 019 027 degrees QTc Int : 453 ms Sinus bradycardia T wave abnormality, consider anterior ischemia When compared with ECG of 14-NOV-2021 06:40, T wave inversion now evident in Anterior leads Confirmed by Orville Kendrick ([id number]) on 11/16/2021 7:33:51 AM Referred By: REFERRED SELF Confirmed By:Orville Kendrick
[2021-11-16 07:54] LABS: Calcium 8.8 mg/dl (8.5-10.1); Creatinine Clr Calc Pharmacy 85.6 ml/min; Est GFR (African American) 83.1 ml/min; Est GFR (Non-African American) 71.7 ml/min; Magnesium 1.9 mg/dl (1.7-2.4); Phosphorus 3.4 mg/dl (2.5-4.9); Potassium 3.2 mmol/L (3.5-5.1)
[2021-11-16] MEDS ORDERED: POTASSIUM CHLORIDE PWD 20 MEQ PACK PO ONE (08:09)
--- NOTE | 2021-11-16 08:11 | Hospitalist Progress Note ---
Date of Service November 16, 2021 Assessment & Plan (1) Suicide attempt by multiple drug overdose: (2) MDD (major depressive disorder), recurrent episode, severe: (3) Anxiety: Plan: - Admitted to tele - Discussed therapy and counseling, pt reports that she has never utilized services like this in the past, agreeable to outpatient counseling/therapy after this hospital stay - 1:1 observation initially - Psychiatry consulted - Ideally, after being medically cleared, patient would be inpatient psych. Patient at this time is not inclined for that. 302 not warranted. Patient denies any SI, and is regretful about her attempt. No prior episodes like this. Psychiatry provided follow-up and resources. Please see psychiatry note for further detail - Holding amlodipine and propranolol as she overdosed on these medications at 9 pm on 11/13 - Continues to be bradycardic, HR in 50s, blood pressure improved. current BP 129/64. She has been hemodynamically stable since admission. 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 Regrets her suicidal attempt, and denies any SI. Patient's boyfriend at the bedside. Denies any chest pain, shortness of breath, any dizziness lightheadedness. Denies abdominal pain, nausea vomiting. Reports she has been ambulating, without any issues. Review of Systems Review of Systems: All systems reviewed & are unremarkable except as noted in Subjective Physical Exam Physical Exam: General: WD/WN F awake, alert, no apparent distress Head: Normocephalic, atraumatic ENT: PERRL, EOMI, no pharyngeal exudate, mucous membranes moist Chest: Clear to auscultation, on room air, no adventitious breath sounds Cardiac: bradycardic HR in 50s no murmur, no JVD, normal peripheral pulses Abdominal: NABS x 4 quadrants, soft, nondistended, nontender to palpation Extremities: Normal inspection, no peripheral edema or erythema, calves nontender to palpation Neuro/Psych: AAO x 3, strength intact bilaterally and rated 5/5, answering questions appropriately, no motor deficits, speech is clear, no peripheral sensory deficits Results & Data Results & Data ([facility]) Vital Signs (Past 12 Hours) Vital Signs Temp Pulse Resp BP Pulse Ox O2 Del Method 11/16/21 07:17 36.9 C 51 L 14 114/69 98 Room Air 11/16/21 04:08 36.6 C 53 L 16 113/68 97 Room Air 11/15/21 23:17 36.7 C 58 L 16 114/65 92 Room Air 11/15/21 21:30 Room Air Laboratory Results 11/16/21 11/15/21 11/15/21 Range/Units 06:11 06:51 06:51 Sodium 137 136 (136-145) mmol/L Potassium 3.2 L 3.7 (3.5-5.1) mmol/L Chloride 104 104 (98-107) mmol/L Carbon Dioxide 25 25 (21-32) mmol/L Anion Gap 8 7 (3-11) BUN 13 14 (6-23) mg/dl Creatinine 0.93 0.89 D (0.6-1.2) mg/dl Est Cr Clr Drug Dosing 85.6 89.4 ml/min Est GFR ( Amer) 83.1 87.6 ml/min Est GFR (Non-Af Amer) 71.7 75.6 ml/min BUN/Creatinine Ratio 14.0 15.7 (10-20) Glucose 129 H 95 (70-99(Fasting)) mg/dl Estimat Average Glucose 117 mg/dl Hemoglobin A1c 5.7 H (4.5-5.6) % Calcium 8.8 8.4 L (8.5-10.1) mg/dl Phosphorus 3.4 3.0 (2.5-4.9) mg/dl Magnesium 1.9 1.8 (1.7-2.4) mg/dl Total Bilirubin 1.0 (0.2-1.0) mg/dl Direct Bilirubin 0.1 (0-0.2) mg/dl AST 18 (13-39) U/L ALT 19 (7-52) U/L Alkaline Phosphatase 41 (34-104) U/L Total Protein 6.6 (6.0-8.3) gm/dl Albumin 4.0 (3.4-5.0) gm/dl Globulin 2.6 (2.5-4.0) gm/dl Albumin/Globulin Ratio 1.5 (0.9-2) Medications Administered Current Inpatient Medications Acetaminophen (Acetaminophen 325 Mg Tab) 650 mg PO Q4H PRN PRN Reason: Moderate Pain Stop: 12/14/21 15:58 Atropine Sulfate (Atropine Sulfate 0.1 Mg/Ml 10ml Syr) 0.5 mg IV Q4H PRN PRN Reason: bradycardia Stop: 12/14/21 15:58 Dextrose (Dextrose 50% 50 Ml Syringe) 25 - 50 ml IV UD PRN; Protocol PRN Reason: Hypoglycemia Protocol Stop: 12/14/21 15:58 Glucagon (Glucagon For Inj 1 Mg Vial) 1 mg SQ UD PRN; Protocol PRN Reason: Hypoglycemia Protocol Stop: 12/14/21 15:58 Glucose (Glucose 40% Gel 15 Gm Tube) 15 - 30 gm PO UD PRN; Protocol PRN Reason: Hypoglycemia Protocol Stop: 12/14/21 15:58 Glucose (Glucose 10 Tab/Tube) 4 - 8 tab PO UD PRN; Protocol PRN Reason: Hypoglycemia Treatment Stop: 12/14/21 15:58 Levothyroxine Sodium (Levothyroxine Sodium 50 Mcg Tablet) 50 mcg PO DAILYBB JASPER Stop: 12/15/21 06:29 Last Admin: 11/16/21 07:24 Dose: 50 mcg Miscellaneous (Carbohydrates For Hypoglycemia ) 15 - 30 gm PO UD PRN PRN Reason: Hypoglycemia Protocol Stop: 12/14/21 15:58 Ondansetron HCl (Ondansetron Inj 2 Mg/Ml 2 Ml Vial) 4 mg IV Q4H PRN PRN Reason: Nausea And Vomiting Stop: 12/14/21 15:58 Potassium Chloride (Potassium Chloride Pwd 20 Meq Pack) 40 meq PO ONE ONE Stop: 11/16/21 08:10
--- NOTE | 2021-11-16 14:22 | Psychiatric Progress Note ---
Date of Service November 16, 2021 Impression / Recommendations Impression 51 yo female with no formal psych hx, taking Prozac 60 for several years for PMDD. Currently having adjustment issues that impulsively triggered OD attempt. 11/16/21: Reviewed interim progress per Dr. Crawford's assessment. Today she continues to feel that attempt was impulsive, continues to consistently, adamantly and genuinely deny SI and is future-oriented with strong reasons for living, strong deterrents to suicide and willingness to engage with outpatient therapy and psychiatry. Discussed recommendation for inpatient psychiatric hospitalization given overdose and to help with coping skills and establishing outpatient resources but she declines as she feels outpatient therapy can help her develop increased coping skills and she feels safe and able to engage with outpatient level of care and feels comfortable calling resources provided to set up outpatient therapy and psychiatry on her own. I do not feel she meets 302 criteria as she is no longer experiencing SI, is actively engaged with safety planning and willing to engage with outpatient care, the acute stressors that lead to her heightened psychic distress have lessened and she feels hospitalization would be countertherapeutic. Reviewed resources should she have difficulty finding an outpatient therapist. She completed a safety plan and feels that the argument and stressors that lead to the attempt have improved after discussing her concerns with her partner. Brent, her partner, was bedside for the assessment and will be home 19/10 as he is taking time off from work. He has secured guns in the home and both Veronica and Brent agree with plan for him to provide her medication once per day as he has secured the medications and over the counter medications in the home. Both feel comfortable with the plan of her returning home once medically stable. Acute risk is low given improvement in mood and denial of SI, lack of access to lethal means, hopefulness, future-oriented and actively engaged with safety planning. Chronic risk is low to moderate given impulsive attempt, mood disorder but also with many protective factors including children, partner, employed, good rapport with her PCP, and ability to form strong therapeutic alliance and engage with outpatient care. Counseled on ways to reduce acute and chronic risk including engaging with outpatient providers including starting outpatient therapy, using safety plan if needed, utilizing supports, taking medication, and using coping skills and building on these in therapy. Most significant modifiable risk factors of SI, anxiety and depression have improved during hospitalization. (1) Adjustment disorder with depressed mood: (2) Anxiety: (3) Hypothyroidism: (4) Suicide attempt by multiple drug overdose: Plan -Can discontinue 1-on-1 -Safe for discharge from psychiatric standpoint once medically stable as she declines voluntary psychiatric admission and not felt to meet criteria for 302 commitment at this point as no longer with SI -Psych liason provided resources for outpatient therapy and psychiatry which she agrees to call about tomorrow to set up an appointment -Completed safety plan and reviewed safety planning measures including limiting access to lethal means and securing medication with Veronica and her partner Risk Factors Assessment : Yes Interval History Identifying Information 51 yo woman with history of PMDD admitted medically following suicide attempt via overdose on blood pressure medications. Psychiatry consulted for risk assessment, recommendations. Chief Complaint "I feel so much better, I totally regret that". Review of Systems Notes stable sleep and appetite Subjective Subjective Patient was seen & assessed and interval progress reviewed. She is seen today initially alone and then with her partner, Brent, at bedside. She continues to deny SI and feels her mood has improved since the attempt noting her mood is "good". States "I totally regret that, I would never do that again". She continues to feel it was impulsive and due to acute stressors and an argument with Brent. She notes her children are a very strong reason for living and deterrent from ever attempting suicide in the future. She states 'I would never do that to them". She feels the fluoxetine works well and wants to continue with this. She discusses things she is looking forward to including her daughter visiting, getting settled with her new job and starting outpatient therapy. Physical Exam Psychiatric Orientation: alert and oriented x 3 Apperance: appropriately dressed and appropriately groomed Eye Contact: good eye contact Motor Behavior: no abnormal motor movements Speech: normal rate/rhythm/volume of speech Affect: euthymic affect Mood: no depressed mood and no anxious mood Thought Process: goal directed thought process Thought Content: reality based without delusions Suicidal Thoughts: denies suicidal thoughts Homicidal Thoughts: denies homicidal thoughts Hallucinations: no auditory hallucinations and no visual hallucinations Cognition: recent memory grossly intact, remote memory grossly intact, attention grossly intact and language grossly intact Estimated Intelligence: consistent with education level Insight: + fair insight Judgement: + fair judgement Vital Signs (Past 24 Hours) Last Vital Signs Temp 36.9 C 11/16/21 07:17 Pulse 51 L 11/16/21 07:17 Resp 14 11/16/21 07:17 BP 114/69 11/16/21 07:17 Pulse Ox 98 11/16/21 07:17 O2 Del Method 11/16/21 07:17 O2 Flow Rate 2 11/14/21 16:23 Results & Data ([facility]) Laboratory Results Laboratory Results - last 24 hr 11/16/21 06:11 Sodium 137 Potassium 3.2 L Chloride 104 Carbon Dioxide 25 Anion Gap 8 BUN 13 Creatinine 0.93 Est Cr Clr Drug Dosing 85.6 Est GFR ( Amer) 83.1 Est GFR (Non-Af Amer) 71.7 BUN/Creatinine Ratio 14.0 Glucose 129 H Calcium 8.8 Phosphorus 3.4 Magnesium 1.9 Current Inpatient Medications Current Inpatient Medications: Current Inpatient Medications Acetaminophen (Acetaminophen 325 Mg Tab) 650 mg PO Q4H PRN PRN Reason: Moderate Pain Stop: 12/14/21 15:58 Atropine Sulfate (Atropine Sulfate 0.1 Mg/Ml 10ml Syr) 0.5 mg IV Q4H PRN PRN Reason: bradycardia Stop: 12/14/21 15:58 Dextrose (Dextrose 50% 50 Ml Syringe) 25 - 50 ml IV UD PRN; Protocol PRN Reason: Hypoglycemia Protocol Stop: 12/14/21 15:58 Glucagon (Glucagon For Inj 1 Mg Vial) 1 mg SQ UD PRN; Protocol PRN Reason: Hypoglycemia Protocol Stop: 12/14/21 15:58 Glucose (Glucose 40% Gel 15 Gm Tube) 15 - 30 gm PO UD PRN; Protocol PRN Reason: Hypoglycemia Protocol Stop: 12/14/21 15:58 Glucose (Glucose 10 Tab/Tube) 4 - 8 tab PO UD PRN; Protocol PRN Reason: Hypoglycemia Treatment Stop: 12/14/21 15:58 Levothyroxine Sodium (Levothyroxine Sodium 50 Mcg Tablet) 50 mcg PO DAILYBB JASPER Stop: 12/15/21 06:29 Last Admin: 11/16/21 07:24 Dose: 50 mcg Miscellaneous (Carbohydrates For Hypoglycemia ) 15 - 30 gm PO UD PRN PRN Reason: Hypoglycemia Protocol Stop: 12/14/21 15:58 Ondansetron HCl (Ondansetron Inj 2 Mg/Ml 2 Ml Vial) 4 mg IV Q4H PRN PRN Reason: Nausea And Vomiting Stop: 12/14/21 15:58
--- NOTE | 2021-11-16 16:51 | Discharge Summary ---
Date of Service November 16, 2021 Admission HPI Per Admitting Provider This is a 51 yo F with PMHx of HTN, IBS, hypothyroidism, major depressive disorder and anxiety who presents to the ER after overdose on propranolol and amlodipine. 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 She is currently employed here in town and reports that she hates her job. She was away from her 3 children, ages 14, 17 and 18. Patient is newly engaged to her fianthony, which she has been dating for approximately 1 year. Last night they got into an argument over alcohol use, as she personally does not drink more than an occasional glass of wine, however reports that her fianthony will drink more than 2 drinks in a sitting and that this upsets her due to something that occurred in her childhood which she does not want to discuss with me currently. Her one dog recently had to be put to sleep. She also moved to here to [place] from [place] earlier this year and states that it has been stressful to be away from her family and her friends. She previously was running for exercise when she was in [place], but also reports she hasn't had time to do this since coming back. Due to all the social stressors and the argument last night she decided she was tired of this and wanted to kill herself by overdosing on propranolol extended release 80 mg x 21-22 tablets, and amlodipine 2.5 mg x 20 tablets at 9pm last evening. She did not sleep all night due to interruptions with her dogs keeping her awake with barking. Denies any other acute symptoms last evening other than feeling a bit weak this morning when she got up. At this point, she has ambulated to the bathroom without difficulty in the ER. She denies any homicidal ideations. She reports she has never felt this way before and has never previously experienced suicidal ideations. Never has previously seen a psychiatrist, counselor or therapist. Pertinent social history: Patient has been on Prozac 60 mg daily x5 years since when her mother . Currently lives with her abe and her 3 children. Employed as a [employer] OPERATOR, traveling assignments. Never incarcerated Family history: Mother: of nonalcoholic cirrhosis and sepsis at age 72 Father: DM type II, at age 55 due to an [place] Brother: Hypertension Sister: Abdominal issues, vomiting, thrush Admission Exam Per Admitting Provider General: awake, alert, no apparent distress, + shakey Head: Normocephalic, atraumatic ENT: PERRL, EOMI, no pharyngeal exudate, mucous membranes moist Chest: Clear to auscultation, on room air, no adventitious breath sounds Cardiac: Regular rate and rhythm, Hr in mid 50s at beside, BP 90s/70s, no murmur , no JVD, normal peripheral pulses, good capillary refill Abdominal: NABS x 4 quadrants, soft, nondistended, nontender to palpation, no rebound or guarding Extremities: Normal inspection, no peripheral edema or erythema, calfs nontender to palpation Psych: depressed mood and slightly tearful affect at times, denies suicidal and homicidal ideations currently Neuro: AAO x 3, strength intact bilaterally and rated 5/5, no motor deficits, speech is clear, no peripheral sensory deficits Principal Diagnosis Suicidal attempt/overdose, bradycardia Discharge Exam General: WD/WN F awake, alert, no apparent distress Head: Normocephalic, atraumatic ENT: PERRL, EOMI, no pharyngeal exudate, mucous membranes moist Chest: Clear to auscultation, on room air, no adventitious breath sounds Cardiac: bradycardic HR in 50s no murmur, no JVD, normal peripheral pulses Abdominal: NABS x 4 quadrants, soft, nondistended, nontender to palpation Extremities: Normal inspection, no peripheral edema or erythema, calves nontender to palpation Neuro/Psych: AAO x 3, strength intact bilaterally and rated 5/5, answering questions appropriately, no motor deficits, speech is clear, no peripheral sensory deficits Discharge Data Allergies Allergy/AdvReac Type Severity Reaction Status Date / Time No Known Allergies Allergy Unverified 11/14/21 17:30 Consultations 11/14/21 11:07 ED Decision to Admit Stat 11/14/21 12:43 Consult Psychiatry Routine 11/14/21 16:35 Consult Behavioral Health Liaison Routine Hospital Course (1) Suicide attempt by multiple drug overdose: (2) MDD (major depressive disorder), recurrent episode, severe: (3) Anxiety: - Admitted to tele - Discussed therapy and counseling, pt reports that she has never utilized services like this in the past, agreeable to outpatient counseling/therapy after this hospital stay - 1:1 observation initially - Psychiatry consulted - Ideally, after being medically cleared, patient would be inpatient psych. Patient at this time is not inclined for that. 302 not warranted. Patient denies any SI, and is regretful about her attempt. No prior episodes like this. Psychiatry provided follow-up and resources. Please see psychiatry note for further detail - Holding amlodipine and propranolol as she overdosed on these medications at 9 pm on 11/13 - Continues to be bradycardic, HR in 50s, blood pressure improved. current BP 129/64. She has been hemodynamically stable since admission. (4) HTN (hypertension): - Holding propranolol and amlodipine secondary to above (5) IBS (irritable bowel syndrome): - Chronic, no current complaints (6) Hypothyroidism: - Cont levothyroxine, TSH wnl Total Time Total Time Spent Total Time Spent (In Minutes): 40 Discharge Plan Discharge Items Patient Disposition: Home - Self-Care Reason For Visit: OVERDOSE, BRADYCARDIA Discharge Diagnosis: Suicidal attempt/overdose, bradycardia Activity: Per Instructions section Non-emergency contact: Primary Care Provider and Psychiatrist Call non-emergency contact if: you have any medication questions and your symptoms worsen Follow-up/Referrals: PCP,NO [Primary Care Provider] - Diet: Regular Addtl Attending Provider Instructions: Follow-up with your primary care provider within the next few days. Ideally contact them tomorrow, Wednesday, November 17. Monitor your blood pressure and heart rate at home, and record your numbers. Discuss further with your primary care doctor if any changes need to be made. At this point, do not take any of your blood pressure medications. Psychiatry liaison provided you with resources for outpatient therapy and psychiatry - call tomorrow to set up an appointment. Take care of yourself ! Carlo West MD Pending Studies at Discharge: No Stand-Alone Forms: My [facility] [employer] Smoking Cessation Medications and DC Order Prescriptions: Continued fluoxetine [Prozac] 20 mg Capsule 60 mg PO DAILY levothyroxine 50 mcg PO DAILY Discontinued propranolol 80 mg Capsule,Extended Release 24 Hr 80 mg PO DAILY amlodipine 2.5 mg PO DAILY Discharge Orders: Discharge Order (Routine); Ordered 11/16/21 Ordered By: Larry West Admission Data Admit Date/Time: 11/14/21 12:10 Attending Provider: Larry West Admit Provider: Tyson Toribio Primary Care Provider: PCP,NO Other Providers: Delia Sandra ; Sobeida Crawford ; Sophie Marte ; Tyson Leslie
--- NOTE | 2021-11-16 21:19 | Electrocardiogram Report ---
Test Reason : Blood Pressure : / mmHG Vent. Rate : 049 BPM Atrial Rate : 049 BPM P-R Int : 126 ms QRS Dur : 082 ms QT Int : 488 ms P-R-T Axes : 060 011 003 degrees QTc Int : 440 ms Sinus bradycardia Otherwise normal ECG When compared with ECG of 15-NOV-2021 14:04, T wave inversion no longer evident in Anterior leads Confirmed by Orville Kendrick ([id number]) on 11/16/2021 9:19:07 PM Referred By: REFERRED SELF Confirmed By:Orville Kendrick
[2021-11-18 08:26] LABS: 7-Aminoclonaz, Confirm NEGATIVE ng/mL (<25); Hydro-Alp Ur, GC/MS NEGATIVE ng/mL (<25); Hydroxyethylflurazepam, Conf NEGATIVE ng/mL (<50); Hydroxymidazolam Ur, GC/MS NEGATIVE ng/mL (<50); Hydroxytriazolam NEGATIVE ng/mL (<50); Lorazepam, Ur GC/MS NEGATIVE ng/mL (<50); MDA negative; MDEA negative; MDMA (Ecstasy) Urine, Confirm negative; Nordiazepam, Confirm NEGATIVE ng/mL (<50); Oxazepam Ur, GC/MS NEGATIVE ng/mL (<50); Temazepam, Confirm 74 ng/mL (<50)
== END 2021-11-16 17:00 | disposition home or self-care (01) | DRG 918 ==
LOC: ED 06:23 → EDINP 12:10 → SUATTDRO 12:10 → 2E 15:30